=== PATIENT | male | born 1960 | race Caucasian/White ===

== ENCOUNTER 2024-01-16 17:47 | Emergency (ER) | payer BC, SELFPAY ==
[2024-01-16] VITALS (7 sets, daily range): BP systolic 137–160; BP diastolic 82–91
--- NOTE | 2024-01-16 18:10 | ED.GENMED ---
History of Present Illness
General
Chief Complaint: Trauma Significant Mechanism
Source: patient
Exam Limitations: none
Time Seen by Provider: 01/16/24 17:58
Travel History
Have you had any contact with someone who has COVID-19?: No
Do you have any symptoms of coronavirus? Fever > 100 degrees, chills, cough, shortness of breath, sore throat, loss of taste or smell, muscle aches, or headache?: No
History of Present Illness
History of Present Illness:
This is a 63 year old male that fell off his horse. States that he was [place] and there was a jump with leaves in the center on the other side of the jump. States that the other horses in front of him went to the one sided of the leaves and his
horse must not have seen the fence as it was wire. States that his horse got caught in the fence and and the horse flipped. States that he landed on his head and he has neck pain. States that he was wearing his helmet and there was no LOC. States
that his head just feels like it wants to fall forward. States that he does have a headache. Denies any fever, chills, chest pain, SOB, abd pain, nausea, vomiting, diarrhea, dizziness.
Past History
Past History
ED Past Medical History: HTN and Hypercholesterolemia
ED Past Surgical History: Other (mastoidectomy, Multiple ear surgery)
Social History
Tobacco: Former smoker
Alcohol: Occasional
Personal:
Living: with family
Review of Systems
Review of Systems
All Other Systems: ROS reviewed and negative except as documented in HPI and ROS
Constitutional: Reports no symptoms; Denies fever or chills
EENT: Reports no symptoms
Respiratory: Reports no symptoms; Denies cough or trouble breathing
Cardiac: Reports no symptoms; Denies chest pain
ABD/GI: Reports no symptoms; Denies abdominal pain, nausea, vomiting or diarrhea
: Reports no symptoms
Musculoskeletal: Reports neck pain and back pain
Skin: Reports no symptoms
Neurological: Reports headache; Denies dizzy
Psychiatric: Reports no symptoms
Phy Exam
General Physical Exam
General Presentation: no apparent distress
General age: appears stated age
General Skin: warm and dry
General Habitus: normal
General Mental: alert
General Hydration: appears well hydrated
ENT Exam
ENT Exam: TM's normal, pharynx normal and other (small right tongue blood blister noted. Negative for any laceration. )
Eye Exam
Eye Exam: EOMI
Cardiovascular Exam
Cardiovascular Exam: regular rate/rhythm, no edema, no murmur and normal peripheral pulses
Pulmonary Exam
Pulmonary Exam: lungs clear, no respiratory distress, no rales, chest non tender, no crackles, no rhonchi, no wheezing and no cough
Gastrointestinal Exam
Gastrointestinal Exam: normal bowel sounds, soft, no organomegaly, no pulsatile mass, non distended and tender (Slight right mid tenderness only with palpation minimally, negative for any LUQ tenderness. )
Musculoskeletal Exam
Musculoskeletal Exam: full ROM, no edema and other (Slight cervical tenderness at the base of the skull, Mid to low back tenderness with palpation. Negative for any discomfort with flexion of the knee's, inversion or eversion. )
Skin Exam
Skin Exam: normal color, warm/dry, no rash and no petechia
Psychiatric Exam
Psychiatric Exam: normal mood/affect
Course
Orders/Labs/Results
Orders:
Orders
01/16/24 18:08
CT Cervical Spine W/o Iv Contr Urgent
Comment:
Reason For Exam: Fall from horse Neck tenderness
CT Head W/o Iv Contrast Urgent
Comment:
Reason For Exam: Fall from horse. Landed on head
CT Lumbar Spine W/o Iv Contras Urgent
Comment:
Reason For Exam: Low back pain, fall from horse
01/16/24 18:10
Complete Blood Count/With Diff Urgent
Comprehensive Metabolic Panel Urgent
01/16/24 18:13
Acetaminophen [Tylenol] 1,000 mg PO NOW STA
01/16/24 19:54
Cyclobenzaprine HCl [Flexeril] 10 mg PO NOW STA
Abnormal Lab Results
01/16/24
18:10
WBC 12.4 H 10^3/uL
(4.8-10.8)
MPV 11.0 H fL
(7.4-10.4)
Absolute Neuts (auto) 9.1 H 10^3/uL
(1.4-6.5)
Absolute Monos (auto) 0.8 H 10^3/uL
(0.1-0.6)
Lymphocytes % 18.1 L %
(20.5-51.1)
Glucose 111 H mg/dl
(70-99)
Total Bilirubin 1.5 H mg/dl
(0.2-1.3)
01/16/24 18:10
01/16/24 18:10
WBC slightly elevated. Glucose nonfasting. Total bl slightly elevated.
Vital Signs
Initial and Last Documented VS:
Initial Vital Signs
Temp Pulse Resp BP Pulse Ox
98.5 F 83 18 160/91 95
01/16/24 17:52 01/16/24 17:52 01/16/24 17:52 01/16/24 17:52 01/16/24 17:52
Last Documented Vital Signs
Temp Pulse Resp BP Pulse Ox
98.5 F 71 19 137/88 95
01/16/24 17:52 01/16/24 19:45 01/16/24 19:45 01/16/24 19:12 01/16/24 19:45
MDM/Problems Addressed
Differential Diagnosis Includes:
Cervical fracture, Intracranial bleed, Lumbar compression fracture
MDM/Problems Addressed:
This is a 63 year old male that comes in with c/o fall from horse. States that his horse did not see the wire fence and he got caught in the wire and flipped. Patient states that he was thrown and landed on his head. Patient is c/o neck pain.
Will get CT head and cervical spine and lumbar spine.
Back into see patient. Explained that the CT of the head, Cervical spine and lumbar spine are negative for any acute process. Will give patient a muscle relaxer to help with the muscle spasm. Patient can use Tylenol and Ibuprofen for pain. Heat or
ice which ever makes him feel better. Follow up with the family doctor for recheck. If patient has vomiting more then twice, headache not relieved by Tylenol or any other concerns to return to the emergency room.
Chronic conditions affecting care:
NA
Acute Exacerbation and/or Progression of Chronic Illness:
NA
*Radiology
Radiology exam reviewed: radiology read reviewed (Lumbar spine- NO CT eivdence for an acute posttraumatic abnormality of the lumbar spine. Head-NO acute intracranial abnormality. Chronic findings. Cervical spiine=NO CT evidence for an acute
posttraumatic abnormality of the cervical spine. )
*Pulse Oximetry
Patient hypoxic: no
*EKG
Interpreted by ED Provider?: NA
Rate: EKG- N/A
*Critical Care Note
Total Time (30-74mins, 75-104mins- exclusive of procedures): Not Applicable
ED Attending Note
-
Portions of this chart may have been created with voice recognition software.� Occasional wrong word or��sound alike� substitutions may have occurred due to the inherent limitations of voice recognition software.
Discharge Plan
Departure
Patient Disposition: Home (Routine Discharge)
Date of Disposition: 01/16/24
Time of Disposition: 20:03
Patient with high blood pressure during this ER visit?: Yes
Condition: Good
Covid-19: Not Applicable
Discharge Problem:
Animal-rider injured by fall from or being thrown from horse in noncollision accident, initial encounter
Instructions: Low Back Pain (DC), Cervical Muscle Strain (DC), BLOOD PRESSURE
Prescriptions:
New
cyclobenzaprine 10 mg tablet
10 mg PO Q12H PRN (Reason: Muscle spasm or stiffness) Qty: 10 0RF
No Action
hydrocodone-acetaminophen 1 TABLET tablet
1 tab PO Q4HPRN PRN (Reason: severe pain) Qty: 8 0RF
Referrals:
Claudio Conte IV, DO [Family Provider] - Follow up in 2-3 days
Activity Restrictions/Additional Instructions:
As discussed, your blood work shows that your WBC are very slightly elevated. This can happen with stress. Your CT of the head, cervical spine and lumbar spine are negative for any acute process. You may use Tylenol 1000mg every 6 hours for pain and
alternate with Ibuprofen 600mg every 6 hours with food for pain. Ice for the next 24 hours to any area that is sore. After this you may use heat or ice. You have had a prescription sent to your Pharmacy for a muscle relaxer. This can make you tired.
Please no driving or alcohol use when taking. Follow up with the family doctor for recheck. IF YOU HAVE ANY OTHER CONCERNS PLEASE RETURN TO THE EMERGENCY ROOM
Interventions
Interventions:
*Risk Screen - Suicide Last Done: 01/16/24 17:52
*General Assessment Last Done: 01/16/24 17:52
*Neglect/Abuse Screening Last Done: 01/16/24 17:52
*ED COVID-19 Vaccine History Last Done: 01/16/24 18:04
Discharge Date and Time
Print Language: FIJIAN
[2024-01-16 18:20] LABS: % Basophils 0.6 % (0-2); % Eosinophils 1.1 % (0-6); % Immature Granulocytes 0.2 % (0-0.5); % Lymphocytes 18.1 % (20.5-51.1); % Monocytes 6.3 % (1.7-9.3); % Neutrophils 73.7 % (42.2-75.2); Absolute Basophils 0.1 10^3/uL (0-0.2); Absolute Eosinophils 0.1 10^3/uL (0-0.7); Absolute Lymphocytes 2.2 10^3/uL (1.2-3.4); Absolute Monocytes 0.8 10^3/uL (0.1-0.6); Absolute Neutrophils 9.1 10^3/uL (1.4-6.5); Hematocrit 45.3 % (39.0-52.0); Hemoglobin 15.3 g/dL (13.0-18.0); Mean Corp Hgb Conc. 33.8 g/dL (33.0-37.0); Mean Corpuscular Hgb 29.7 pg (27.0-31.0); Mean Corpuscular Volume 87.8 fL (80.0-94.0); Nucleated Red Blood Cells % 0 % (-); Platelet Count 214 10^3/uL (130-400); Red Blood Cell Count 5.16 10^6/uL (4.70-6.10); Red Cell Dist. Width 13.2 % (11.5-14.5); White Blood Cell Count 12.4 10^3/uL (4.8-10.8)
[2024-01-16] MEDS: TYLENOL 1000 MG PO (18:30)
[2024-01-16 18:33] LABS: ALT (SGPT) 24 U/L (0-50); AST (SGOT) 40 U/L (17-59); Albumin 4.6 g/dl (3.5-5.0); Alkaline Phosphatase 99 U/L (38-126); Blood Urea Nitrogen 15 mg/dl (9-20); Calcium 9.2 mg/dl (8.4-10.2); Carbon Dioxide 25 mmol/L (22-30); Chloride 105 mmol/L (98-107); Glucose 111 mg/dl (70-99); Potassium 3.6 mmol/L (3.5-5.1); Sodium 137 mmol/L (135-145); Total Bilirubin 1.5 mg/dl (0.2-1.3); Total Protein 7.8 g/dl (6.3-8.2); eGFR > 60.00
[2024-01-16] MEDS: FLEXERIL 10 MG PO (19:58)
== END 2024-01-16 20:21 | disposition home or self-care (01) ==
LOC: EMR 17:47
PROVIDERS: Clinical Nurse Specialist Family Health; EMERGENCY PHYSICIAN Emergency Medicine; FAMILY PHYSICIAN Family Medicine
DX: M54.2 Cervicalgia (principal); R51.9 Headache, unspecified; M54.50 Low back pain, unspecified; M62.838 Other muscle spasm; V80.010A Animal-rider injured by fall from or being thrown from horse in noncollision accident, initial encounter; Y93.52 Activity, horseback riding; I10 Essential (primary) hypertension; E78.00 Pure hypercholesterolemia, unspecified; Z87.891 Personal history of nicotine dependence
CPT/HCPCS: 99284; 70450; 72125; 72131; 80053; 85025

== ENCOUNTER 2024-10-03 09:14 | Inpatient (IN) | payer BC, SELFPAY ==
[2024-09-25 08:57] LABS: Hematocrit 31.4 % (39.0-52.0); Hemoglobin 10.3 g/dL (13.0-18.0); Mean Corp Hgb Conc. 32.8 g/dL (33.0-37.0); Mean Corpuscular Hgb 28.6 pg (27.0-31.0); Mean Corpuscular Volume 87.2 fL (80.0-94.0); Mean Platelet Volume 11.1 fL (7.4-10.4); Platelet Count 304 10^3/uL (130-400); Red Cell Dist. Width 13.5 % (11.5-14.5); White Blood Cell Count 7.4 10^3/uL (4.8-10.8)
[2024-09-25 09:06] LABS: INR 1.01; PT 13.6 Sec (11.4-14.6)
[2024-09-25 09:07] LABS: APTT 40.5 Sec (23.4-35.0)
[2024-09-25 09:18] LABS: ALT (SGPT) 17 U/L (0-50); AST (SGOT) 20 U/L (17-59); Albumin 4.3 g/dl (3.5-5.0); Alkaline Phosphatase 113 U/L (38-126); Blood Urea Nitrogen 20 mg/dl (9-20); Calcium 8.5 mg/dl (8.4-10.2); Carbon Dioxide 26 mmol/L (22-30); Chloride 105 mmol/L (98-107); Glucose 97 mg/dl (70-99); Potassium 4.2 mmol/L (3.5-5.1); Sodium 139 mmol/L (135-145); Total Bilirubin 0.8 mg/dl (0.2-1.3); Total Protein 7.2 g/dl (6.3-8.2); eGFR > 60.00
[2024-10-03] VITALS (8 sets, daily range): BP systolic 116–133; BP diastolic 70–81
[2024-10-03] MEDS: NEURONTIN 300 MG PO (09:35)
[2024-10-03] MEDS: HEPARIN 5000 UNITS SC ×2 (09:35→20:11)
[2024-10-03] MEDS: NORMOSOL-R/PLASMALYTE-A 1000 IV (09:35)
[2024-10-03] MEDS: TYLENOL 1000 MG PO (09:35)
[2024-10-03] MEDS: D5/0.9% SODIUM CHLORIDE 1000 IV (15:31)
[2024-10-03] MEDS: MORPHINE SULFATE 2 MG IV ×2 (15:32→19:09)
[2024-10-03] MEDS: TYLENOL PO (16:00)
--- NOTE | 2024-10-03 17:00 | PTCARENOTE ---
pt admitted to 2S rm 2110 from the PACU at 1500. pt arrived via bed awake and alert. oriented to room, bed controls, call gutierrez and plan of care with verbalized understanding. O2 2L NC maintained. pox 95-96%. left chest tube to water seal.
dressing clean, dry and intact. drainage in tubing is serosanguineous. small dressing noted to left axilla are also clean and dry. pt educated and assisted to order dinner. family at bedside. medicated with morphine per MAR for pain. care
ongoing.
[2024-10-03] MEDS: TORADOL 10 MG IV (20:10)
[2024-10-03] MEDS: TYLENOL 650 MG PO (20:12)
[2024-10-03] MEDS: COLACE 100 MG PO (20:12)
[2024-10-04] MEDS: TORADOL 10 MG IV ×4 (01:19→20:30)
[2024-10-04] MEDS: ROXICODONE 5 MG PO (01:25)
[2024-10-04] MEDS: TYLENOL 650 MG PO ×4 (01:26→20:30)
[2024-10-04] MEDS: D5/0.9% SODIUM CHLORIDE 1000 IV (04:15)
[2024-10-04] MEDS: TYLENOL PO ×2 (04:23→14:59)
[2024-10-04] MEDS: MORPHINE SULFATE 2 MG IV (05:57)
[2024-10-04 06:59] LABS: Hematocrit 28.2 % (39.0-52.0); Mean Corp Hgb Conc. 31.9 g/dL (33.0-37.0); Mean Corpuscular Hgb 26.7 pg (27.0-31.0); Mean Corpuscular Volume 83.7 fL (80.0-94.0); Mean Platelet Volume 11.4 fL (7.4-10.4); Platelet Count 278 10^3/uL (130-400); Red Blood Cell Count 3.37 10^6/uL (4.70-6.10); Red Cell Dist. Width 13.8 % (11.5-14.5); White Blood Cell Count 15.5 10^3/uL (4.8-10.8)
[2024-10-04 07:18] LABS: Blood Urea Nitrogen 17 mg/dl (9-20); Calcium 8.3 mg/dl (8.4-10.2); Carbon Dioxide 20 mmol/L (22-30); Chloride 104 mmol/L (98-107); Estimated Creatinine Clearance 82 ml/min; Glucose 130 mg/dl (70-99); Potassium 4.3 mmol/L (3.5-5.1); Sodium 135 mmol/L (135-145); eGFR > 60.00
[2024-10-04 07:24] VITALS: BP 124/73
[2024-10-04] MEDS: NORVASC 10 MG PO (08:59)
[2024-10-04] MEDS: COLACE 100 MG PO ×2 (08:59→20:32)
[2024-10-04] MEDS: HEPARIN 5000 UNITS SC ×2 (08:59→20:32)
[2024-10-04 15:04] VITALS: BP 109/64
[2024-10-04] MEDS: D5/0.9% SODIUM CHLORIDE IV (15:12)
--- NOTE | 2024-10-04 15:12 | CM ---
Patient lives with spouse in a 2 story home, patient is independent with adl's and ambulation, no dme, patient drives, per patient he is for possible discharge today.
Plan; Home no needs.
PCP: Claudio Conte
Pharmacy [facility]
Plan; Home today no needs.
--- NOTE | 2024-10-04 15:17 | W.PN.GENERIC ---
Assessment / Plan
-
S/p RUL tumor resection. POD #1
PTX after chest tube pulled.
Repeat CXR in AM. If stable or better, possible DC tomorrow.
If develops SOB, CT or AM CXR shows worsening of PTX, will need a chest tubr
DW pt.
Physician Progress Note
Subjective
No complaints except for some incisional pain. No SOB or chest pain
Objective
Vital Signs
Temp Pulse Resp BP Pulse Ox
98.1 F 63 16 124/73 94
10/04/24 07:24 24 07:24 1824 07:24 1824 07:24 10/04/24 07:24
Lab Results
10/04/24 05:53
10/04/24 05:53
Pul - CTA x 2
Chest tube with out air leak, which was pulled this AM but moderate size PTX on the fU CXR
[2024-10-04 22:48] VITALS: BP 115/69
[2024-10-05] MEDS: TYLENOL PO ×3 (00:37→12:00)
[2024-10-05] MEDS: TORADOL 10 MG IV (01:57)
[2024-10-05] MEDS: ROXICODONE 5 MG PO ×3 (01:57→11:11)
[2024-10-05 08:00] VITALS: BP 124/77
[2024-10-05] MEDS: TYLENOL 650 MG PO (09:07)
[2024-10-05] MEDS: NORVASC 10 MG PO (09:07)
[2024-10-05] MEDS: HEPARIN 5000 UNITS SC (09:07)
[2024-10-05] MEDS: COLACE 100 MG PO (09:07)
--- NOTE | 2024-10-05 11:46 | W.DS.TRANS ---
DC Summary - [facility] [employer] [facility]
-
Discharge Instructions:
Sleep Apnea Risk Intermediate
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
Diet No restrictions
Activity No strenuous activity,As tolerated
Driving Restrictions No driving for 1 week
Bathing Restrictions OK to Shower
Instructions:
Stand-Alone Forms:
Changes to Home Medications: No
Discharge Medications:
DC Medications w/original date entered in [employer]
Fish Oil 1 cap PO DAILY Supplement 09/27/24
Pre/Pro Biotic 2 cap PO DAILY Supplement 09/27/24
amlodipine 10 mg tablet 10 mg PO DAILY Blood Pressure 09/27/24
ascorbic acid (vitamin C) 1,000 mg tablet (Vitamin C) 1 g PO DAILY Supplement 09/27/24
cholecalciferol (vitamin D3) 50 mcg (2,000 unit) capsule (Vitamin D3) 50 mcg PO DAILY Supplement 09/27/24
magnesium citrate 1 cap PO DAILY Supplement 09/27/24
multivitamin 1 tab PO DAILY Supplement 09/27/24
oregano oil 1 cap PO PRN PRN immune support 09/27/24
vitamin E 1 cap PO DAILY 09/27/24
zinc 1 cap PO DAILY 09/27/24
Home Medication Changes
Pending Results: No
--- NOTE | 2024-10-05 12:00 | CM ---
Pt for discharge today
Has ride home with
Plan - anticipate home no needs
[2024-10-05 12:30] VITALS: BP 123/75
--- NOTE | 2024-10-16 11:05 | OR.RPT ---
Operative Report
Operative Report
Date of Operation: October 03, 2024
Preoperative Diagnosis: Left upper lobe lung nodule - [id number]
Postoperative Diagnosis: Same
Surgeon: Kiran Mckeon M.D.
Operation: Mini- thoracotomy, wedge resection of the left upper lobe - 53593
Anesthesia: GET
Estimated Blood Loss: 10 cc
Drains: 32F chest tube in the left thorax
Specimen: Left upper lobe lung tumor
Complications: None
Procedure: The patient was taken to the operating room and placed in the usual supine position. After an adequate double-lumen endotracheal tube was placed, the patient was positioned in the right decubitus position with the left chest up. The left
chest was prepped and draped in the usual sterile fashion. At this time, a 6 cm mid-axillary incision was made with a #10 blade, and this was taken through the skin into the subcutaneous tissue. The serratus anterior muscle overlying the 5th
intercostal space was identified and split along the course of the muscle fibers. The intercostal muscle of the fifth intercostal space was divided, and the left chest was entered. The left chest was explored. The tumor in the anterior aspect of the
left upper lobe was identified. The left upper lobe tumor was wedge resected using endoGIA [employer] purple stables. The intraoperative pathology evaluations showed no obvious evidence malignancy. Therefore, we did not proceed with full lobectomy or
mediastinal lymph node dissection. A 32 [place] chest tube was placed through the anterior thoracostomy incision and anchored to the skin using a #2 nylon suture. The ribs were re-approximated with 1 Vicryl in the transcostal fascia. The serratus
anterior muscle was also re-approximated with 1 Vicryl in a running fashion. The fascia was approximated with 1 Vicryl in a running fashion. The subcutaneous tissue was re-approximated with 3-0 Vicryl in a running fashion. The skin was approximated
with 4-0 Monocryl in a running subcuticular fashion. Steri-strips and a sterile dressing were placed. The chest tube was connected to the Pleurovac. The patient was placed back in the supine position and extubated without any problems. The final
needle, sponge, and instrument counts were correct. The patient was transferred to the recovery room.
== END 2024-10-05 14:29 | disposition home or self-care (01) | DRG 164 ==
LOC: 2 SOUTH 09:14
PROVIDERS: ADMITTING PHYSICIAN Surgery; FAMILY PHYSICIAN Family Medicine
PROC: 0BTG0ZZ Resection of Left Upper Lung Lobe, Open Approach (ICD-10-PCS; 2024-10-03)
DX: D14.32 Benign neoplasm of left bronchus and lung (principal); J95.811 Postprocedural pneumothorax; Y83.8 Other surgical procedures as the cause of abnormal reaction of the patient, or of later complication, without mention of misadventure at the time of the procedure; I10 Essential (primary) hypertension
CPT/HCPCS: 88307; 88332; 36415; 71045; 80048; 80053; 85027; 85610; 85730; 86850; 86900; 86901; 88313; 88331; 93005; C1776

== ENCOUNTER → 2024-11-07 11:42 | Outpatient (REF) | payer BC, SELFPAY ==
[2024-11-07 12:19] LABS: % Basophils 1.1 % (0-2); % Eosinophils 4.2 % (0-6); % Immature Granulocytes 0.5 % (0-0.5); % Lymphocytes 15.9 % (20.5-51.1); % Monocytes 6.4 % (1.7-9.3); % Neutrophils 71.9 % (42.2-75.2); Absolute Basophils 0.1 10^3/uL (0-0.2); Absolute Eosinophils 0.4 10^3/uL (0-0.7); Absolute Lymphocytes 1.4 10^3/uL (1.2-3.4); Absolute Monocytes 0.6 10^3/uL (0.1-0.6); Absolute Neutrophils 6.4 10^3/uL (1.4-6.5); Hematocrit 36.2 % (39.0-52.0); Hemoglobin 11.1 g/dL (13.0-18.0); Mean Corp Hgb Conc. 30.7 g/dL (33.0-37.0); Mean Corpuscular Hgb 23.2 pg (27.0-31.0); Mean Corpuscular Volume 75.6 fL (80.0-94.0); Nucleated Red Blood Cells % 0 % (-); Platelet Count 396 10^3/uL (130-400); Red Blood Cell Count 4.79 10^6/uL (4.70-6.10); Red Cell Dist. Width 15.5 % (11.5-14.5); White Blood Cell Count 8.9 10^3/uL (4.8-10.8)
[2024-11-07 12:55] LABS: ALT (SGPT) 11 U/L (0-50); AST (SGOT) 17 U/L (17-59); Albumin 4.8 g/dl (3.5-5.0); Alkaline Phosphatase 114 U/L (38-126); Blood Urea Nitrogen 13 mg/dl (9-20); Calcium 9.1 mg/dl (8.4-10.2); Carbon Dioxide 26 mmol/L (22-30); Chloride 102 mmol/L (98-107); Glucose 96 mg/dl (70-99); Potassium 4.1 mmol/L (3.5-5.1); Sodium 142 mmol/L (135-145); Total Bilirubin 1.1 mg/dl (0.2-1.3); Total Protein 8.3 g/dl (6.3-8.2); eGFR > 60.00
== END ==
LOC: RAD 11:42
PROVIDERS: ATTENDING PHYSICIAN Surgery; FAMILY PHYSICIAN Family Medicine
DX: T81.719A Complication of unspecified artery following a procedure, not elsewhere classified, initial encounter (principal); Z01.89 Encounter for other specified special examinations; R50.9 Fever, unspecified
CPT/HCPCS: 36415; 71275; 80053; 85025; Q9967

== ENCOUNTER → 2024-11-08 08:53 | Outpatient (REF) | payer BC, SELFPAY ==
[2024-11-08 09:09] VITALS: BP 132/86; BP_SYST 70
== END ==
LOC: RADI 08:53
PROVIDERS: ATTENDING PHYSICIAN Surgery; FAMILY PHYSICIAN Family Medicine
DX: J90 Pleural effusion, not elsewhere classified (principal)
CPT/HCPCS: 32555; 71045

== ENCOUNTER → 2024-11-14 10:49 | Outpatient (REF) | payer BC, SELFPAY | LOC: RAD 10:49 | PROVIDERS: ATTENDING PHYSICIAN Surgery; FAMILY PHYSICIAN Family Medicine | DX: J90 Pleural effusion, not elsewhere classified (principal) | CPT/HCPCS: 71046 ==